=== PATIENT | female | born 1965 | race Caucasian/White ===

== ENCOUNTER 2016-08-29 17:03 | Emergency (ER) | payer OTHER ==
[~2016-08-29] VITALS: Ht 165.1 cm; Wt 67.6 kg
[2016-08-29 18:48] VITALS: BP 114/88
== END 2016-08-29 18:54 | disposition home or self-care (01) ==
LOC: EME 17:03
DX: R04.0 Epistaxis (principal); J44.9 Chronic obstructive pulmonary disease, unspecified; F17.200 Nicotine dependence, unspecified, uncomplicated
CPT/HCPCS: 99281; 99283

== ENCOUNTER 2016-11-18 13:23 | Day surgery (SDC) | payer OTHER ==
[~2016-11-18] VITALS: Ht 165.1 cm; Wt 63.1 kg
[~2016-11-18 13:23] MED LIST: ADVAIR 250/501 DISK IH; CELEBREX100 MG PO; FLEXERIL5 MG PO; LORCET 5-325 M1 EACH PO; NEURONTIN600 MG PO
== END 2016-11-18 16:05 | disposition home or self-care (01) ==
LOC: PAIN 13:23 → SDC 14:00 → PAIN 16:05
DX: M47.812 Spondylosis without myelopathy or radiculopathy, cervical region (principal); M50.20 Other cervical disc displacement, unspecified cervical region; M53.3 Sacrococcygeal disorders, not elsewhere classified; M54.5 Low back pain; F17.200 Nicotine dependence, unspecified, uncomplicated; Z88.0 Allergy status to penicillin; Z88.5 Allergy status to narcotic agent; Z88.6 Allergy status to analgesic agent; Z88.8 Allergy status to other drugs, medicaments and biological substances
CPT/HCPCS: J1030; J2250; J2405; J3010; S0020

== ENCOUNTER 2017-01-24 13:37 | Day surgery (SDC) | payer OTHER ==
[~2017-01-24] VITALS: Ht 165.1 cm; Wt 63.5 kg
[~2017-01-24 13:37] MED LIST changes: +FLEXERIL10 MG PO; +PROAIR HFA8.5 GM IH
== END 2017-01-24 15:10 | disposition home or self-care (01) ==
LOC: PAIN 13:37 → SDC 14:00 → PAIN 14:00
DX: M46.1 Sacroiliitis, not elsewhere classified (principal); M53.3 Sacrococcygeal disorders, not elsewhere classified; M47.22 Other spondylosis with radiculopathy, cervical region; M47.26 Other spondylosis with radiculopathy, lumbar region; F17.210 Nicotine dependence, cigarettes, uncomplicated; J44.9 Chronic obstructive pulmonary disease, unspecified; Z88.0 Allergy status to penicillin
CPT/HCPCS: J1030; J2250; J3010; S0020